=== PATIENT | female | born 1965 | race Caucasian/White ===

== ENCOUNTER 2024-10-06 09:56 | Emergency (ER) | payer OTHER, SELFPAY ==
[2024-10-06 10:03] VITALS: BP 126/73; PULSE 66; RESP 18; TEMP 36.9; O2SAT 100
--- NOTE | 2024-10-06 10:08 | XR_ITS ---
Examination: CT thoracic spine, without contrast. 2-D sagittal reconstructions. 2-D coronal reconstructions. 3-D reconstructions. Date and time of exam:October 06, 2024 1028 hrs. Indications: Injury to the back 4 days ago with persistent mid back pain CTDI: vol (mGy):13.8 DLP: (mGycm):480 Technique: Multiple 1.25 mm axial sections of the thoracic spine without intravenous contrast have been obtained. 2-D sagittal and coronal reconstructions have been obtained. 3-D reconstructions have been obtained. Low dose protocols were performed. One or more of the following dose reduction techniques were used; automated exposure control, adjustment of the mA and/or KV according to patient size, use of iterative reconstruction technique. Findings: Severe osteopenia Acute mild compression fracture T10 vertebral body, axial image 147, mild depression superior endplate, reduction in height of this vertebral body less than 10% The pedicles and laminae appear intact at this level No focal thoracic disc protrusions Impression: Mild acute fracture T10 vertebral body
[2024-10-06 10:14] VITALS: BMI 21.4
[2024-10-06] MEDS: CYCLObenzaPRINE 5 MG TABLET 10 MG PO (10:35)
--- NOTE | 2024-10-06 10:44 | EDNOTE_ITS ---
ED Back Injury Pain RME/HPI General Chief Complaint: Back Pain/Injury Stated Complaint: BACK PAIN Time Seen by Provider: 10/06/24 10:01 Arrival date/time: 10/06/24 09:56 59-year-old female presents to the Emergency Department today with complaints of mid to upper back pain patient reports that she was lifting a metal bench and when she did so she felt pain in her upper back. Limitations: no limitations Related Data Previous Rx's ?Medication ?Instructions ?Recorded cyclobenzaprine 10 mg tablet 10 mg PO TID PRN muscle s pasm 10 10/06/24 days #30 tab-caps ibuprofen 600 mg tablet 600 mg PO Q6H #30 tabs 10/06 Allergies Allergy/AdvReac Type Severity Reaction Status Date / Time tetracycline Allergy Severe Chest Pain Verified 10/06/24 09:59 Sulfa (Sulfonamide Allergy Verified 10/06/24 09:59 Antibiotics) Review of Systems Review of Systems Systems Reviewed: All systems reviewed, normal except as documented Constitutional Constitutional: Reports system reviewed and no additional complaints, except as documented, Denies fever(s) and Denies headache(s) Eyes Eyes: Reports system reviewed and no additional complaints, except as documented and Denies blurry vision ENT Ears, Nose, Mouth, and Throat: Reports system reviewed and no additional complaints, except as documented, Denies headache(s), Denies nasal congestion and Denies nasal discharge Cardiovascular Cardiovascular: Reports system reviewed and no additional complaints, except as documented, Denies chest pain and Denies dyspnea Respiratory Respiratory: Reports system reviewed and no additional complaints, except as documented, Denies chest congestion, Denies cough and Denies dyspnea Gastrointestinal Gastrointestinal: Reports system reviewed and no additional complaints, except as documented and Denies abdominal pain Musculoskeletal Musculoskeletal: Reports system reviewed and no additional complaints, except as documented, Reports back pain, Denies numbness, Reports stiffness and Denies tingling Integumentary/Breasts Skin/Breast: Reports system reviewed and no additional complaints, except as documented and Denies rash Neurologic Neurologic: Reports system reviewed and no additional complaints, except as documented, Reports as per HPI, Denies headache(s), Denies numbness and Denies tingling Past Medical History Social History SMOKING STATUS: Never smoker ED Exam General Limitations: Present no limitations General appearance: Present alert and in no apparent distress Head Head exam: Present atraumatic Eye Eye exam: Present normal appearance, PERRL and EOMI ENT ENT exam: Present normal exam, normal oropharynx and mucous membranes moist Neck Neck exam: Present normal inspection, full ROM and trachea midline Chest Chest inspection: Present normal inspection and symmetric chest wall rise Respiratory Respiratory exam: Present normal lung sounds bilaterally Cardiovascular Cardiovascular exam: Present regular rate, normal rhythm and normal heart sounds Abdominal Exam Abdominal exam: Present soft and normal bowel sounds; Absent distention, tenderness, guarding, rebound or rigidity Extremities Exam Extremities exam: Present normal inspection and full ROM Back Exam Back exam: Present normal inspection, full ROM, muscle spasm and paraspinal tenderness; Absent CVA tenderness (R) or CVA tenderness (L) Neurological Exam Neurological exam: Present alert, oriented X3 and CN II-XII intact Psychiatric Psychiatric exam: Present normal affect and normal mood Skin Skin exam: Present warm, dry, intact and normal color Course Quality Measures none Orders Category Date Time Status CT thoracic spine wo con Stat Exams 10/06/24 10:08 Completed CYCLObenzaPRINE [Flexeril] Med 10/06/24 10:21 Discontinued 10 mg PO X1 ONE Diazepam [Valium] Med 10/06/24 10:08 Discontinued 5 mg PO X1 ONE Ketorolac Inj [Toradol Inj] Med 10/06/24 10:08 Discontinued 30 mg IM X1 ONE Vital Signs Vital signs: Vital Signs Temperature 98.4 F 10/06/24 10:03 Pulse Rate 66 10/06/24 10:03 Respiratory Rate 18 10/06/24 10:03 Blood Pressure 126/73 10/06/24 10:03 Pulse Oximetry (%) 100 10/06/24 10:03 Oxygen Delivery Method Room Air 10/06/24 10:03 O2 saturation 100% on room air within normal limits Back Pain / Injury MDM Narrative MDM Narrative:: 59-year-old female presents to the Emergency Department today with complaints of mid to upper back pain patient reports that she was lifting a metal bench and when she did so she felt pain in her upper back. On exam patient has mid to upper back pain and tenderness patient reports no numbness and tingling patient walks with steady gait Imaging obtained patient has mild compression fracture T10 Discussed findings with my attending felt the patient be discharged home to follow-up on an outpatient basis as patient has no significant pain patient walks with steady gait and has no numbness or tingling patient be discharged home Patient reports he lives out of town patient given prescription for muscle relaxer was given a copy of her CT report as well as a copy of her CT report Patient discharged home in no distress to follow-up with primary care doctor in the next 24 to 48 hours and for any worsening symptoms to return to the ER immediately Patient data External records reviewed:: [facility] [place] previous records Clinical information provided by:: patient Social determinants that could affect healthcare access:: none Patient has the following chronic illnesses:: None How is presenting disease/condition affected by chronic disease/condition?: no chronic disease Evaluation data The following diagnostics were reviewed and interpreted by me:: radiology exam(s) Lab and/or radiology exams considered but not ordered:: Radiology obtain Interpretation Summary: Reviewed by me Medications / Prescriptions Medications or Prescriptions considered but not ordered:: Given Medication administrations:: Medication Administration History Discontinued Medications Cyclobenzaprine HCl (Cyclobenzaprine 5 Mg Tablet) 10 mg PO X1 ONE Stop: 10/06/24 10:22 Last Admin: 10/06/24 10:35 Dose: 10 mg Documented By: SADAF Diazepam (Diazepam 5 Mg Tablet) 5 mg PO X1 ONE Stop: 10/06/24 10:09 Last Admin: 10/06/24 10:36 Dose: Not Given Documented By: SADAF Non-Admin Reason: Patient Refused Ketorolac Tromethamine (Ketorolac Inj 30 Mg/Ml Vial) 30 mg IM X1 ONE Stop: 10/06/24 10:09 Last Admin: 10/06/24 10:36 Dose: Not Given Documented By: SADAF Non-Admin Reason: Patient Refused Given Consultations Consultation(s) initiated? (list below): No Diagnosis Differential diagnosis back pain/injury: lumbar radiculopathy, strain of lumbar region and thoracic back pain Most likely diagnosis given after review of the tests above:: Given Admission Indicated Admission indicated?: not indicated Admission Request Was there a request for admission?: No Disposition Plan Disposition Plan: Discharge Discharge Attestation Discharge Attestation: The patient and all family members were given an opportunity to ask questions and understood the discharge instructions. Discharge instructions specifically effects, indications for sooner follow up or return to the emergency department, and the expected course of current diagnosis. Patient condition: Stable Discharge Plan Plan Patient Disposition: HOME (Self Care) Discharge Disposition comment: Stable Prescriptions/Referrals Prescriptions/Med Rec: New cyclobenzaprine 10 mg tablet 10 mg PO TID PRN (Reason: muscle spasm) 10 Days Qty: 30 0RF ibuprofen 600 mg tablet 600 mg PO Q6H Qty: 30 0RF Problem List Clinical Impression: Thoracic compression fracture, Back pain Patient/Caregiver Discharge Instructions Education Materials: Back Safety: Bending Additional Instructions: Please bring copy of your CT report to your primary care doctor for further evaluation for worsening symptoms or concerns return immediately Print Language: Stateless Stand Alone Forms: Tete Award Info., Patient Portal Info Letter PA/COLLEGE HIRE Supervising Physician PA/COLLEGE HIRE Supervising Physician: Dr. narayan
== END 2024-10-06 10:49 | disposition home or self-care (01) ==
LOC: SERX 11:14
PROVIDERS: Emergency Provider Family Medicine
DX: S22.079A Unspecified fracture of T9-T10 vertebra, initial encounter for closed fracture (principal); X50.0XXA Overexertion from strenuous movement or load, initial encounter
CPT/HCPCS: 72128; 99284; A9270